=== PATIENT | male | born 1970 | race Caucasian/White ===

== ENCOUNTER → 2017-02-21 | Outpatient (CLI) | payer OTHER ==
[~2017-02-21] MED LIST: BACTRIM DS 8001 TA1 PO; CHLORHEXIDINE480 ML T; CIPRO500 MG PO; COMPAZINE10 MG PO; DOXYCYCLINE100 M3 PO; KEFLEX500 MG PO; LANTUS100 U/ML SC; METFORMIN1000 MG PO; MOTRIN800 MG; NOVOLOG1 UNIT/0.0 SC; PERCOCET 325 MG1 TA2 PO; PERCOCET 325 MG1 TA5 PO; PRILOSEC20 MG PO; TRAMADOL HCL50 MG PO; VICODIN 500 MG-1 TAB PO; VITAMIN B12500 MCG PO; VITAMIN D50000 I2 PO
== END | disposition home or self-care (01) ==
LOC: CT 07:34
DX: N20.0 Calculus of kidney (principal); L02.31 Cutaneous abscess of buttock; N28.89 Other specified disorders of kidney and ureter

== ENCOUNTER 2018-01-27 15:53 | Emergency (ER) | payer OTHER ==
[~2018-01-27] VITALS: Wt 113.4 kg
[2018-01-27] MEDS ORDERED: MEDROL DOSEPAK4 MG PO (16:10)
[2018-01-27] MEDS ORDERED: CYCLOBENZAPRINE10 MG PO (16:10)
== END 2018-01-27 16:15 | disposition home or self-care (01) ==
LOC: ED 15:53
DX: G89.29 Other chronic pain (principal); M54.5 Low back pain; Z79.899 Other long term (current) drug therapy

== ENCOUNTER → 2018-03-24 | Outpatient (CLI) | payer OTHER ==
[~2018-03-24] MED LIST changes: +CYCLOBENZAPRINE10 MG PO; +MEDROL DOSEPAK4 MG PO
== END | disposition home or self-care (01) ==
LOC: CARD 14:55
DX: R00.0 Tachycardia, unspecified (principal)

== ENCOUNTER → 2018-05-01 | Outpatient (CLI) | payer OTHER ==
[~2018-05-01] MED LIST changes: +GLUCOPHAGE500 M1 PO
--- NOTE | ~2018-05-01 | ST ---
[place], [place] EXERCISE STRESS TEST REPORT NAME: ISABEL VALENZUELA UNIT #: [id number] ROOM: DOCTOR: OLEG GARRISON [facility] [place] [place],MAGALY BIRTHDATE: [birth year] DOS: 05/01/2018 LEXISCAN STRESS CARDIOLITE Underwent stress test on stage 3 Doroteo protocol up to 10 METs and up to 90% better predicted heart rate 151 per minute, blood pressures response is good. Double product is good. No electrocardiographic changes for myocardial ischemia noted. The patient received Lexiscan. The patient received isotope after injecting the isotope and this was terminated and no complication noted. Myocardial perfusion scan to follow. MAGALY DEJESUS MD CM:STRESS:EXERCISE STRESS TEST REPORT [id number] MAGALY DEJESUS MD [facility]
== END | disposition home or self-care (01) ==
LOC: CARD 03:07
DX: I65.23 Occlusion and stenosis of bilateral carotid arteries (principal); I10 Essential (primary) hypertension; R94.31 Abnormal electrocardiogram [ECG] [EKG]

== ENCOUNTER → 2018-05-07 | Outpatient (CLI) | payer OTHER | END | disposition home or self-care (01) | LOC: CARD 00:27 | DX: I10 Essential (primary) hypertension (principal); R94.31 Abnormal electrocardiogram [ECG] [EKG] ==

== ENCOUNTER 2019-01-13 18:04 | Emergency (ER) | payer SELFPAY ==
[~2019-01-13] VITALS: Ht 182.8 cm; Wt 104.3 kg
[2019-01-13] MEDS ORDERED: AUGMENTIN 875875 MG PO (18:20)
[2019-01-13] MEDS ORDERED: FLONASE ALLERG9.9 ML NAS (18:20)
[2019-01-13] MEDS ORDERED: PROAIR HFA8.5 GM INH (18:20)
== END 2019-01-13 18:26 | disposition home or self-care (01) ==
LOC: ED 18:04
DX: J01.10 Acute frontal sinusitis, unspecified (principal); J01.00 Acute maxillary sinusitis, unspecified; E11.9 Type 2 diabetes mellitus without complications; Z79.4 Long term (current) use of insulin

== ENCOUNTER 2021-01-02 11:01 | Inpatient (IN) | payer BC ==
[~2021-01-02] VITALS: Ht 182.9 cm; Wt 132.5 kg
[~2021-01-02 11:01] MED LIST changes: +ATORVASTATIN CA40 M1 PO; +AUGMENTIN 875875 MG PO; +CLOPIDOGREL75 MG PO; +FLONASE ALLERG9.9 ML NAS; +GLUCOPHAGE1000 MG PO; -GLUCOPHAGE500 M1 PO; +Lopressor25 MG PO; +PROAIR HFA8.5 GM INH
[2021-01-02 11:10] VITALS: BP 129/75
[2021-01-02 11:43] LABS: BASO % 0.4 % (0.0-1.0); EOS # 0.3 10*3/uL (0.0-0.4); EOS % 2.6 % (1.0-4.0); HEMATOCRIT 42.9 % (42.0-52.0); LYMPH # 2.4 10*3/uL (1.3-4.4); LYMPH % 24.5 % (27.0-41.0); MEAN CELL VOLUME 82.5 fl (80.0-94.0); MEAN CORPUSCULAR HGB 26.5 pg (27.0-31.0); MEAN CORPUSCULAR HGB CONC 32.2 g/dl (33.0-37.0); MEAN PLATELET VOLUME 8.4 fl (9.6-12.3); MONO # 0.8 10*3/uL (0.1-1.0); MONO % 8.2 % (3.0-9.0); NEUT # 6.3 10*3/uL (2.3-7.9); NEUT % 63.7 % (47.0-73.0); PLATELET COUNT AUTOMATED 268 10*3/uL (130-400); RED CELL DISTRI WIDTH 13.9 % (0-14.5); WHITE BLOOD COUNT 9.9 10*3/uL (4.8-10.8)
[2021-01-02 11:54] LABS: ACT PARTIAL THROMBO TIME 27.8 SECONDS (20.0-32.1); INTERNATIONAL NORM RATIO 0.9 (2.0-3.5)
[2021-01-02 11:58] LABS: ALBUMIN 2.6 gm/dl (3.1-4.5); ALKALINE PHOSPHATASE 146 U/L (45-117); BUN 15 mg/dl (7-24); CHLORIDE 110 mmol/L (98-107); CREATININE 0.91 mg/dL (0.70-1.30); LIPASE 84 U/L (73-393); POTASSIUM 3.9 mmol/L (3.5-5.1); SGOT/AST 22 IU/L (3-35); SGPT/ALT 42 U/L (12-78); SODIUM 138 mmol/L (136-145); TOTAL PROTEIN 7.3 gm/dL (6.4-8.2); TROPONIN I < 0.015 ng/ml (<0.045)
[2021-01-02 16:53] VITALS: BP 113/59
[2021-01-02] MEDS ORDERED: ZESTRIL10 MG PO (17:11)
[2021-01-02] MEDS ORDERED: ASPIRIN81 M1 PO (17:12)
[2021-01-02] MEDS ORDERED: FLOMAX0.4 MG PO (17:12)
[2021-01-02] MEDS ORDERED: JARDIANCE10 MG PO (17:12)
[2021-01-02] MEDS ORDERED: TRESIBA100 UNIT/1 SC (17:13)
[2021-01-02] MEDS ORDERED: GABAPENTIN600 MG PO (17:14)
[2021-01-02] MEDS ORDERED: CYCLOBENZAPRINE10 MG PO (17:18)
[2021-01-02 20:00] VITALS: BP 142/75
[2021-01-03] VITALS: BP 123/72
[2021-01-03 05:58] LABS: ALBUMIN 2.2 gm/dl (3.1-4.5); ALKALINE PHOSPHATASE 134 U/L (45-117); BUN 16 mg/dl (7-24); CHLORIDE 111 mmol/L (98-107); CHOLESTEROL 92 mg/dL (<200); CREATININE 0.82 mg/dL (0.70-1.30); HDL CHOLESTEROL 34 mg/dl (40-60); LDL CHOLESTEROL 41 mg/dL (9-159); SGOT/AST 23 IU/L (3-35); SGPT/ALT 47 U/L (12-78); SODIUM 140 mmol/L (136-145); TOTAL PROTEIN 6.5 gm/dL (6.4-8.2); TRIGLYCERIDES 84 mg/dl (<150); VLDL CHOLESTEROL 17 mg/dL (6-40)
[2021-01-03 06:03] LABS: FREE T4 1.23 ng/dl (0.76-1.46)
[2021-01-03 06:07] LABS: BASO % 0.4 % (0.0-1.0); EOS # 0.3 10*3/uL (0.0-0.4); EOS % 2.5 % (1.0-4.0); HEMATOCRIT 38.8 % (42.0-52.0); LYMPH # 2.5 10*3/uL (1.3-4.4); LYMPH % 21.7 % (27.0-41.0); MEAN CELL VOLUME 83.1 fl (80.0-94.0); MEAN CORPUSCULAR HGB 26.8 pg (27.0-31.0); MEAN CORPUSCULAR HGB CONC 32.2 g/dl (33.0-37.0); MEAN PLATELET VOLUME 8.7 fl (9.6-12.3); MONO # 0.9 10*3/uL (0.1-1.0); MONO % 7.7 % (3.0-9.0); NEUT # 7.6 10*3/uL (2.3-7.9); NEUT % 66.9 % (47.0-73.0); PLATELET COUNT AUTOMATED 252 10*3/uL (130-400); RED BLOOD COUNT 4.67 10*6/uL (4.50-5.90); RED CELL DISTRI WIDTH 13.9 % (0-14.5); WHITE BLOOD COUNT 11.3 10*3/uL (4.8-10.8)
[2021-01-03 07:37] LABS: VITAMIN D, 25-HYDROXY 25.9 ng/mL (30-100)
[2021-01-03 08:00] VITALS: BP 126/72
[2021-01-03 12:00] VITALS: BP 110/68
[2021-01-03 16:00] VITALS: BP 120/62
[2021-01-03 19:56] VITALS: BP 119/52
[2021-01-03 20:55] VITALS: BP 138/66
[2021-01-04] VITALS: BP 112/94
[2021-01-04 05:57] LABS: BUN 13 mg/dl (7-24); CHLORIDE 111 mmol/L (98-107); CREATININE 0.76 mg/dL (0.70-1.30); SODIUM 138 mmol/L (136-145)
[2021-01-04 06:17] LABS: BASO # 0.1 10*3/uL (0.0-0.1); BASO % 0.5 % (0.0-1.0); EOS # 0.3 10*3/uL (0.0-0.4); EOS % 2.6 % (1.0-4.0); LYMPH # 2.3 10*3/uL (1.3-4.4); LYMPH % 23.5 % (27.0-41.0); MEAN CELL VOLUME 83.9 fl (80.0-94.0); MEAN CORPUSCULAR HGB 26.7 pg (27.0-31.0); MEAN CORPUSCULAR HGB CONC 31.8 g/dl (33.0-37.0); MEAN PLATELET VOLUME 8.7 fl (9.6-12.3); MONO # 0.8 10*3/uL (0.1-1.0); MONO % 7.9 % (3.0-9.0); NEUT # 6.2 10*3/uL (2.3-7.9); NEUT % 64.5 % (47.0-73.0); PLATELET COUNT AUTOMATED 230 10*3/uL (130-400); RED BLOOD COUNT 4.53 10*6/uL (4.50-5.90); WHITE BLOOD COUNT 9.7 10*3/uL (4.8-10.8)
[2021-01-04 08:00] VITALS: BP 118/90
[2021-01-04 09:28] VITALS: BP 124/78
[2021-01-04] MEDS ORDERED: DOXYCYCLINE100 M3 PO (10:44)
== END 2021-01-04 11:55 | disposition home or self-care (01) | DRG 602 ==
LOC: ED 11:01 → EDHOLD 14:24 → 4E 14:24
PROVIDERS: Emergency Medicine; Family Medicine; Hospitalist; ADMIT Internal Medicine; ATTEND Internal Medicine
DX: L03.314 Cellulitis of groin (principal); E43 Unspecified severe protein-calorie malnutrition; D64.9 Anemia, unspecified; I25.10 Atherosclerotic heart disease of native coronary artery without angina pectoris; I10 Essential (primary) hypertension; E11.65 Type 2 diabetes mellitus with hyperglycemia; R74.01 Elevation of levels of liver transaminase levels; D17.9 Benign lipomatous neoplasm, unspecified; L02.214 Cutaneous abscess of groin; I25.2 Old myocardial infarction; Z79.4 Long term (current) use of insulin; Z82.49 Family history of ischemic heart disease and other diseases of the circulatory system; Z83.3 Family history of diabetes mellitus; Z68.39 Body mass index [BMI] 39.0-39.9, adult

== ENCOUNTER → 2021-05-11 | Outpatient (CLI) | payer BC ==
[~2021-05-11] MED LIST changes: +ASPIRIN81 M1 PO; +FLOMAX0.4 MG PO; +GABAPENTIN600 MG PO; +JARDIANCE10 MG PO; +TRESIBA100 UNIT/1 SC; +ZESTRIL10 MG PO
[2021-05-11 13:05] LABS: BILIRUBIN Negative (Negative); BLOOD Negative (Negative); CLARITY Clear (Clear); COLOR Yellow (Yellow); GLUCOSE Negative (Negative); KETONE Negative (Negative); LEUKO ESTERASE Negative (Negative); NITRITE Negative (Negative); SPECIFIC GRAVITY 1.015 (1.001-1.030)
[2021-05-11 13:22] LABS: BACTERIA TRACE; EPITHELIAL CELLS 0-2; RBC 0-2 rbc/hpf (0-2); WBC 0-2 wbc/hpf (0-5)
[2021-05-11 13:30] LABS: ALBUMIN 2.8 gm/dl (3.1-4.5); ALKALINE PHOSPHATASE 125 U/L (45-117); BUN 19 mg/dl (7-24); CHLORIDE 110 mmol/L (98-107); CHOLESTEROL 88 mg/dL (<200); CREATININE 0.68 mg/dL (0.70-1.30); LDL CHOLESTEROL 39 mg/dL (9-159); POTASSIUM 3.8 mmol/L (3.5-5.1); SGOT/AST 9 IU/L (3-35); SGPT/ALT 23 U/L (12-78); SODIUM 142 mmol/L (136-145); TOTAL PROTEIN 6.8 gm/dL (6.4-8.2); TRIGLYCERIDES 55 mg/dl (<150)
== END | disposition home or self-care (01) ==
LOC: LAB 12:31
PROVIDERS: ATTEND Internal Medicine
DX: E11.65 Type 2 diabetes mellitus with hyperglycemia (principal); E78.5 Hyperlipidemia, unspecified; E55.9 Vitamin D deficiency, unspecified

== ENCOUNTER 2022-03-01 19:58 | Emergency (ER) | payer BC ==
[~2022-03-01] VITALS: Ht 182.8 cm; Wt 133.6 kg
[2022-03-01 20:33] LABS: HEMATOCRIT 41.4 % (42.0-52.0); MEAN CELL VOLUME 82.1 fl (80.0-94.0); MEAN CORPUSCULAR HGB 26.6 pg (27.0-31.0); MEAN CORPUSCULAR HGB CONC 32.4 g/dl (33.0-37.0); MEAN PLATELET VOLUME 9.1 fl (9.6-12.3); PLATELET COUNT AUTOMATED 261 10*3/uL (130-400); RED BLOOD COUNT 5.04 10*6/uL (4.50-5.90); RED CELL DISTRI WIDTH 13.2 % (0-14.5); WHITE BLOOD COUNT 11.7 10*3/uL (4.8-10.8)
[2022-03-01 20:48] LABS: BUN 29 mg/dl (7-24); CHLORIDE 106 mmol/L (98-107); CREATININE 1.39 mg/dL (0.70-1.30); POTASSIUM 4.5 mmol/L (3.5-5.1); SGOT/AST 10 IU/L (3-35); SGPT/ALT 30 U/L (12-78); SODIUM 136 mmol/L (136-145)
[2022-03-01 20:49] LABS: ACT PARTIAL THROMBO TIME 21.7 SECONDS (20.0-32.1); ALKALINE PHOSPHATASE 101 U/L (45-117); TOTAL PROTEIN 6.7 gm/dL (6.4-8.2)
[2022-03-01 20:59] LABS: MANUAL DIFF REFLEX YES
[2022-03-01 21:02] LABS: TOTAL CELLS COUNTED 100 #CELLS
[2022-03-01 21:03] LABS: BURR CELLS MODERATE; POLYCHROMASIA SLIGHT; STOMATOCYTE FEW
[2022-03-01 21:04] LABS: PLATELET SUFFICIENCY NORMAL (NORMAL)
== END 2022-03-02 02:15 | disposition home or self-care (01) ==
LOC: ED 19:58
PROVIDERS: Emergency Medicine
DX: I95.1 Orthostatic hypotension (principal); E86.0 Dehydration; Z79.899 Other long term (current) drug therapy; Z79.82 Long term (current) use of aspirin; Z90.89 Acquired absence of other organs

== ENCOUNTER → 2022-11-26 | Outpatient (CLI) | payer BC ==
[2022-11-26 08:30] LABS: BILIRUBIN Negative (Negative); BLOOD Negative (Negative); CLARITY Clear (Clear); COLOR Yellow (Yellow); GLUCOSE 3+ (Negative); KETONE Negative (Negative); LEUKO ESTERASE Negative (Negative); NITRITE Negative (Negative); PH 5.5 (4.5-8.0); UROBILINOGEN 0.2 E.U./dl (0.0-1.0)
[2022-11-26 08:44] LABS: ALKALINE PHOSPHATASE 124 U/L (46-116); BUN 20 mg/dl (9-23); CHLORIDE 102 mmol/L (98-107); CHOLESTEROL 83 mg/dL (<200); LDL CHOLESTEROL 43 mg/dL (9-159); POTASSIUM 4.2 mmol/L (3.4-5.1); SGPT/ALT 18 U/L (10-49); TRIGLYCERIDES 81 mg/dl (<150)
[2022-11-26 09:42] LABS: EPITHELIAL CELLS 0-2; WBC 0-2 wbc/hpf (0-5)
== END | disposition home or self-care (01) ==
LOC: LAB 07:37
PROVIDERS: ATTEND Internal Medicine
DX: E11.65 Type 2 diabetes mellitus with hyperglycemia (principal); E78.5 Hyperlipidemia, unspecified; E55.9 Vitamin D deficiency, unspecified

== ENCOUNTER → 2023-03-28 | Outpatient (CLI) | payer BC ==
[~2023-03-28] MED LIST changes: +FARXIGA10 M1 PO; +HYDR12.5C PO; +VITAMIN D350 MCG PO
== END | disposition home or self-care (01) ==
LOC: CARD 00:48
PROVIDERS: ATTEND Internal Medicine Cardiovascular Disease
DX: I25.10 Atherosclerotic heart disease of native coronary artery without angina pectoris (principal); R07.89 Other chest pain

== ENCOUNTER → 2023-07-22 | Outpatient (CLI) | payer BC ==
[2023-07-22 08:45] LABS: BILIRUBIN Negative (Negative); BLOOD Negative (Negative); CLARITY Clear (Clear); COLOR Yellow (Yellow); GLUCOSE 3+ (Negative); KETONE Trace (Negative); LEUKO ESTERASE Negative (Negative); NITRITE Negative (Negative); PH 5.5 (4.5-8.0); SPECIFIC GRAVITY >= 1.030 (1.001-1.030)
[2023-07-22 09:04] LABS: EPITHELIAL CELLS 0-2; RBC 0-2 rbc/hpf (0-2); WBC 0-2 wbc/hpf (0-5)
[2023-07-22 09:21] LABS: ALKALINE PHOSPHATASE 136 U/L (46-116); BUN 18 mg/dl (9-23); CHLORIDE 105 mmol/L (98-107); CHOLESTEROL 107 mg/dL (<200); LDL CHOLESTEROL 54 mg/dL (9-159); POTASSIUM 4.4 mmol/L (3.4-5.1); SGPT/ALT 18 U/L (5-49); TOTAL PROTEIN 7.1 gm/dL (6.0-8.0); TRIGLYCERIDES 99 mg/dl (<150)
== END | disposition home or self-care (01) ==
LOC: LAB 08:17
PROVIDERS: ATTEND Internal Medicine
DX: E11.65 Type 2 diabetes mellitus with hyperglycemia (principal); E55.9 Vitamin D deficiency, unspecified; E78.5 Hyperlipidemia, unspecified

== ENCOUNTER → 2024-01-13 | Outpatient (CLI) | payer BC ==
[2024-01-13 15:52] LABS: BASO # 0.1 10*3/uL (0.0-0.1); BASO % 0.7 % (0.0-1.0); EOS # 0.5 10*3/uL (0.0-0.4); EOS % 4.6 % (1.0-4.0); HEMATOCRIT 46.4 % (42.0-52.0); LYMPH # 3.1 10*3/uL (1.3-4.4); LYMPH % 29.3 % (27.0-41.0); MEAN CELL VOLUME 84.2 fl (80.0-94.0); MEAN CORPUSCULAR HGB CONC 32.1 g/dl (33.0-37.0); MEAN PLATELET VOLUME 8.7 fl (9.6-12.3); MONO # 0.9 10*3/uL (0.1-1.0); MONO % 8.1 % (3.0-9.0); NEUT # 6.1 10*3/uL (2.3-7.9); NEUT % 56.9 % (47.0-73.0); PLATELET COUNT AUTOMATED 256 10*3/uL (130-400); RED BLOOD COUNT 5.51 10*6/uL (4.50-5.90); RED CELL DISTRI WIDTH 14.1 % (0-14.5); WHITE BLOOD COUNT 10.7 10*3/uL (4.8-10.8)
[2024-01-13 16:27] LABS: ALKALINE PHOSPHATASE 118 U/L (46-116); BUN 27 mg/dl (9-23); CHLORIDE 103 mmol/L (98-107); CHOLESTEROL 106 mg/dL (<200); LDL CHOLESTEROL 46 mg/dL (9-159); POTASSIUM 4.5 mmol/L (3.4-5.1); SGPT/ALT 31 U/L (5-49); TOTAL PROTEIN 7.3 gm/dL (6.0-8.0); TRIGLYCERIDES 138 mg/dl (<150)
== END | disposition home or self-care (01) ==
LOC: RESCLI 03:14
PROVIDERS: ATTEND Internal Medicine
DX: I10 Essential (primary) hypertension (principal); Z13.9 Encounter for screening, unspecified; E11.9 Type 2 diabetes mellitus without complications; I25.10 Atherosclerotic heart disease of native coronary artery without angina pectoris; E55.9 Vitamin D deficiency, unspecified; E78.5 Hyperlipidemia, unspecified; M62.838 Other muscle spasm; K21.9 Gastro-esophageal reflux disease without esophagitis; Z88.8 Allergy status to other drugs, medicaments and biological substances; Z79.82 Long term (current) use of aspirin; Z79.84 Long term (current) use of oral hypoglycemic drugs; Z98.890 Other specified postprocedural states; Z79.899 Other long term (current) drug therapy

== ENCOUNTER 2024-04-17 11:04 | Emergency (ER) | payer BC ==
[~2024-04-17] VITALS: Ht 182.8 cm; Wt 138.3 kg
[~2024-04-17 11:04] MED LIST changes: -GLUCOPHAGE1000 MG PO; +GLUCOPHAGE500 MG PO
[2024-04-17] MEDS ORDERED: PANTOPRAZOLE SO40 MG PO (11:17)
[2024-04-17] MEDS ORDERED: HUMULIN R100 UNIT/1 IJ (11:19)
[2024-04-17] MEDS ORDERED: MOUNJARO2.5 MG/0.1 SQ (11:20)
[2024-04-17] MEDS ORDERED: Acetaminophen/Hydrocodone 5 MG/325 MG TABLET PO ONE (11:35)
[2024-04-17] MEDS ORDERED: Piperacillin Sodium/Tazobact 50 ML IV ONE (11:40)
[2024-04-17] MEDS ORDERED: Vancomycin Hydrochloride 250 ML IV ONE (11:40)
[2024-04-17 12:07] LABS: BASO % 0.3 % (0.0-1.0); EOS # 0.3 10*3/uL (0.0-0.4); EOS % 2.3 % (1.0-4.0); HEMATOCRIT 41.5 % (42.0-52.0); LYMPH # 1.8 10*3/uL (1.3-4.4); LYMPH % 15.8 % (27.0-41.0); MEAN CELL VOLUME 85.7 fl (80.0-94.0); MEAN CORPUSCULAR HGB 27.3 pg (27.0-31.0); MEAN CORPUSCULAR HGB CONC 31.8 g/dl (33.0-37.0); MEAN PLATELET VOLUME 8.5 fl (9.6-12.3); MONO # 0.9 10*3/uL (0.1-1.0); MONO % 8.1 % (3.0-9.0); NEUT # 8.5 10*3/uL (2.3-7.9); NEUT % 73.1 % (47.0-73.0); PLATELET COUNT AUTOMATED 229 10*3/uL (130-400); RED BLOOD COUNT 4.84 10*6/uL (4.50-5.90); RED CELL DISTRI WIDTH 13.5 % (0-14.5); WHITE BLOOD COUNT 11.6 10*3/uL (4.8-10.8)
[2024-04-17 12:29] LABS: BUN 23 mg/dl (9-23); CHLORIDE 106 mmol/L (98-107); POTASSIUM 3.8 mmol/L (3.4-5.1)
== END 2024-04-17 15:06 | disposition short-term general hospital (02) ==
LOC: ED 11:04
PROVIDERS: Nurse Practitioner Family
DX: N49.2 Inflammatory disorders of scrotum (principal); E11.65 Type 2 diabetes mellitus with hyperglycemia; D64.9 Anemia, unspecified; I25.10 Atherosclerotic heart disease of native coronary artery without angina pectoris; I10 Essential (primary) hypertension; I25.2 Old myocardial infarction; R79.82 Elevated C-reactive protein (CRP); R70.0 Elevated erythrocyte sedimentation rate; E78.5 Hyperlipidemia, unspecified; Z87.442 Personal history of urinary calculi; Z98.890 Other specified postprocedural states

== ENCOUNTER 2024-09-04 11:32 | Emergency (ER) | payer BC ==
[~2024-09-04] VITALS: Ht 182.8 cm; Wt 136.1 kg
[~2024-09-04 11:32] MED LIST changes: +HUMULIN R100 UNIT/1 IJ; +MOUNJARO2.5 MG/0.1 SQ; +PANTOPRAZOLE SO40 MG PO
[2024-09-04] MEDS ORDERED: Ondansetron Hydrochloride 4 MG/2 ML VIAL IV ONE (11:45)
[2024-09-04] MEDS ORDERED: MORPHINE Sulfate 2 MG/ML SYR IV ONE (11:45)
[2024-09-04] MEDS ORDERED: SODIUM CHLORIDE 0.9% 1,000 ML IV ONE (11:45)
[2024-09-04 11:56] LABS: BASO # 0.1 10*3/uL (0.0-0.1); BASO % 0.6 % (0.0-1.0); EOS # 0.2 10*3/uL (0.0-0.4); EOS % 2.6 % (1.0-4.0); HEMATOCRIT 43.3 % (42.0-52.0); MEAN CELL VOLUME 83.1 fl (80.0-94.0); MEAN CORPUSCULAR HGB 26.3 pg (27.0-31.0); MEAN CORPUSCULAR HGB CONC 31.6 g/dl (33.0-37.0); MEAN PLATELET VOLUME 8.6 fl (9.6-12.3); MONO # 0.6 10*3/uL (0.1-1.0); MONO % 7.1 % (3.0-9.0); NEUT # 5.2 10*3/uL (2.3-7.9); NEUT % 65.4 % (47.0-73.0); PLATELET COUNT AUTOMATED 269 10*3/uL (130-400); RED BLOOD COUNT 5.21 10*6/uL (4.50-5.90); WHITE BLOOD COUNT 7.9 10*3/uL (4.8-10.8)
[2024-09-04 12:17] LABS: BUN 23 mg/dl (9-23); CHLORIDE 104 mmol/L (98-107); POTASSIUM 4.1 mmol/L (3.4-5.1)
[2024-09-04] MEDS ORDERED: TRULICITY0.75 MG/0. SC (13:22)
[2024-09-04] MEDS ORDERED: PEPCID20 MG PO (14:11)
== END 2024-09-04 14:22 | disposition home or self-care (01) ==
LOC: ED 11:32
PROVIDERS: Emergency Medicine
DX: R07.89 Other chest pain (principal); I25.10 Atherosclerotic heart disease of native coronary artery without angina pectoris; I10 Essential (primary) hypertension; E78.5 Hyperlipidemia, unspecified; E11.9 Type 2 diabetes mellitus without complications; I25.2 Old myocardial infarction; Z87.442 Personal history of urinary calculi; Z98.890 Other specified postprocedural states

== ENCOUNTER → 2024-11-24 | Outpatient (CLI) | payer BC ==
[~2024-11-24] MED LIST changes: +PEPCID20 MG PO; +TRULICITY0.75 MG/0. SC
== END | disposition home or self-care (01) ==
LOC: LAB 10:53
PROVIDERS: ATTEND Internal Medicine Endocrinology, Diabetes & Metabolism
DX: E11.9 Type 2 diabetes mellitus without complications (principal)

== ENCOUNTER 2025-05-20 10:11 | Emergency (ER) | payer BC ==
[~2025-05-20] VITALS: Ht 185.4 cm; Wt 95.3 kg
[2025-05-20] MEDS ORDERED: Acetaminophen/Oxycodone 5 MG/325 MG TABLET PO ONE (10:40)
[2025-05-20] MEDS ORDERED: SODIUM CHLORIDE 0.9% 1,000 ML IV ONE ×2 (10:45→10:50)
[2025-05-20] MEDS ORDERED: Ondansetron Hydrochloride 4 MG/2 ML VIAL IV ONE (10:50)
[2025-05-20 11:03] LABS: BASO # 0.1 10*3/uL (0.0-0.1); BASO % 0.4 % (0.0-1.0); EOS # 0.3 10*3/uL (0.0-0.4); EOS % 2.5 % (1.0-4.0); MEAN CELL VOLUME 83.4 fl (80.0-94.0); MEAN CORPUSCULAR HGB 25.8 pg (27.0-31.0); MEAN PLATELET VOLUME 8.5 fl (9.6-12.3); MONO # 0.7 10*3/uL (0.1-1.0); MONO % 5.8 % (3.0-9.0); NEUT # 9.8 10*3/uL (2.3-7.9); NEUT % 82.6 % (47.0-73.0); NUCLEATED RED BLOOD CELL 0.0 % (0.0-0.0); NUCLEATED RED BLOOD CELL 0.0 10*3/uL (0.0-0.0); PLATELET COUNT AUTOMATED 240 10*3/uL (130-400); RED CELL DISTRI WIDTH 14.2 % (0-14.5)
[2025-05-20 11:25] LABS: BUN 18 mg/dl (9-23); SGPT/ALT 23 U/L (5-49)
[2025-05-20 11:56] LABS: BILIRUBIN Negative (Negative); BLOOD Negative (Negative); CLARITY Clear (Clear); COLOR Yellow (Yellow); KETONE Trace (Negative); LEUKO ESTERASE Negative (Negative); NITRITE Negative (Negative); PH 5.0 (4.5-8.0); SPECIFIC GRAVITY >= 1.030 (1.001-1.030); UROBILINOGEN 1.0 E.U./dl (0.0-1.0)
[2025-05-20] MEDS ORDERED: Ondansetron4 MG PO (12:17)
== END 2025-05-20 12:17 | disposition home or self-care (01) ==
LOC: ED 10:11
PROVIDERS: Emergency Medicine
DX: R11.2 Nausea with vomiting, unspecified (principal); K59.00 Constipation, unspecified; R68.83 Chills (without fever); E11.9 Type 2 diabetes mellitus without complications; I10 Essential (primary) hypertension; I25.10 Atherosclerotic heart disease of native coronary artery without angina pectoris; Z95.5 Presence of coronary angioplasty implant and graft; Z79.899 Other long term (current) drug therapy; Z79.82 Long term (current) use of aspirin; Z79.4 Long term (current) use of insulin; Z87.891 Personal history of nicotine dependence

== ENCOUNTER → 2025-06-28 | Outpatient (CLI) | payer BC ==
[~2025-06-28] MED LIST changes: +Ondansetron4 MG PO
[2025-06-28 12:21] LABS: BUN 27 mg/dl (9-23); LDL CHOLESTEROL 35 mg/dL (9-159); SGPT/ALT 16 U/L (5-49)
== END | disposition home or self-care (01) ==
LOC: LAB 11:05
PROVIDERS: Student in an Organized Health Care Education/Training Program; ATTEND Internal Medicine Endocrinology, Diabetes & Metabolism
DX: E11.9 Type 2 diabetes mellitus without complications (principal)